=== PATIENT | male | born 1965 | race Caucasian/White ===

== ENCOUNTER 2023-10-19 16:40 | Emergency (ER) | payer OTHER ==
[2023-10-19 16:56] VITALS: BP 121/76; PULSE 78; RESP 18; TEMP 98.6; BMI 26.6
[2023-10-19] MEDS ORDERED: ACETAMINOPHEN 500 MG TABLET (FP) ONE (17:37)
[2023-10-19] MEDS: ACETAMINOPHEN 500 MG TABLET (FP) PO ONE (17:39)
== END 2023-10-19 20:05 | disposition home or self-care (01) ==
LOC: FER 16:40
DX: S39.012A Strain of muscle, fascia and tendon of lower back, initial encounter (principal); S80.02XA Contusion of left knee, initial encounter; R07.81 Pleurodynia; M25.552 Pain in left hip; M79.652 Pain in left thigh; V43.52XA Car driver injured in collision with other type car in traffic accident, initial encounter; Y92.410 Unspecified street and highway as the place of occurrence of the external cause
CPT/HCPCS: 71101-TC-LT-FY; 73502-TC-LT-FY; 73552-TC-LT-FY; 73564-TC-LT-FY; 99284-25